=== PATIENT | female | born 1970 | race Caucasian/White ===

== ENCOUNTER → 2021-03-24 | Outpatient (CLI) | payer BC, OTHER ==
[~2021-03-24] VITALS: Ht 165.1 cm; Wt 113.4 kg
[~2021-03-24] MED LIST: ACETAMINOPHEN325 M1 PO; MELOXICAM7.5 MG PO; METHOCARBAMOL500 M2 PO; METHOTREXATE 22.5 M1 PO; NEURONTIN100 MG PO; PERCOCET 5-3251 EACH PO; PRILOSEC OTC20 MG PO; RAYOS5 MG PO; ZESTRIL40 MG PO
--- NOTE | ~2021-03-24 | HPC ---
[facility] [place] [address] PAIN MANAGEMENT CONSULTATION Name: LYNNE MORATAYA Room #: REG [facility]..#: [id number] Admission: 03/24/21 Attend Phys: Shai Cazares DO Discharge: Date of : 68 Report #: [id number] THIS REPORT FOR: cc: Frankie Castillo,Frankie Gibbons,Shai Sullivan DO ~ cc: Phani Blackburn MD DATE OF SERVICE: 03/24/2021 REFERRING PHYSICIAN: Phnai Blackburn MD CHIEF COMPLAINT: Low back pain, left lower extremity pain with paresthesias. HISTORY OF PRESENT ILLNESS: As you know, the patient is a 50-year-old female who reports acute onset of low back pain, left lower extremity pain that began 12/16/2019. She denies specific injury or trauma. She indicates that her pain progressively worsened. She trialled conservative treatment including [id number] medications, rest and relaxation without much in the way of improvement. She was recently seen by her shipyard painter helper, Dr. Phani Blackburn and nurse practitioner, Belen Granados, and evaluated for her underlying rheumatologic issues. She was complaining of back pain, left lower extremity pain. She was given a Medrol Dosepak, which provided minimal improvement in symptoms. They did obtain x-rays, which showed significant degenerative changes of the lumbar spine. She underwent MRI of the lumbar spine, which showed changes consistent with her distribution of symptoms at the L4-L5 level. She has trialled conservative treatment options including physical therapy. She did 4-5 weeks of physical therapy 2-3 times a week, but did not notice much in the way of improvement. She has been continuing to experience increasing pain for which she places pain up to a level of 10/10. She contacted her Rheumatology group who referred the patient on to our clinic. We also received a referral from the primary care team. The patient reports today is intermittent. She describes the pain as a shooting, aching, crushing throbbing, sharp, stabbing, pounding, numbness and tingling. Places current pain score at 4-5/10, daily average at 4-5/10, worst pain has been is 10+/10. The patient indicates her pain is exacerbated with rising from bed and standing as well as progresses throughout the day. Pain is improved with minimal movement. She has been referred to our service to discuss treatment options for suspected lumbar radiculopathy. PAST MEDICAL HISTORY: 1. Hypertension. 2. Degenerative joint disease. 3. Osteoarthritis. 4. Seropositive rheumatoid arthritis. 5. Class 3 [place] [address] PAIN MANAGEMENT CONSULTATION Name: LYNNE MORATAYA Room #: REG [facility] Campbell#: [id number] Admission: 03/24/21 Attend Phys: Shai Cazares DO Discharge: Date of : 68 Report #: [id number] PAST SURGICAL HISTORY: 1. Tonsillectomy. 2. D and C. SOCIAL HISTORY: The patient denies tobacco use. Denies IV or illicit drug use. Admits approximately 3 alcohol beverages per week. 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 She is not in litigation in regards to pain. She is unaccompanied at today's visit. REVIEW OF SYSTEMS: Positive for wearing corrective eyewear, nocturia, dysuria, change in force and streaming urination, incontinence and dribbling to urine, numbness and tingling sensations involving the left lower extremity, varicose veins, nervousness. All other review of systems negative per 12-point review of systems other than those listed in history of present illness. Pain impact score 48 of 70, moderate to severe interference of daily activities secondary to pain. ALLERGIES: SULFA. CURRENT MEDICATIONS: Tylenol regular strength 325 mg p.r.n., methocarbamol 500 mg 3 times a day, Zestril 40 mg once a day, omeprazole 40 mg once a day, omeprazole 20 mg once a day, meloxicam 7.5 mg once a day, methotrexate 2.5 mg 8 tablets per week, Percocet 5/325 one tab p.o. b.i.d., prednisone 5 mg once a day, gabapentin 100 mg 3 times a day. IMAGING: MRI lumbar spine obtained 03/17/2021 shows L1-L2 unremarkable. L2-L3 unremarkable. L3-L4 unremarkable. L4-L5 shows disk protrusion, moderate facet arthropathy, mild central canal narrowing. There is subarticular recess narrowing, left greater than right. There is abutment of the descending L5 nerve roots, left greater than right. No foraminal narrowing. L5-S1 shows posterior disk osteophyte complex. Moderate facet arthropathy. Prominent epidural fat within the thecal sac inferiorly. No neural foraminal stenosis. PHYSICAL EXAMINATION: VITAL SIGNS: Blood pressure 154/88, pulse 96, respiratory rate 18 and unlabored. The patient is 95% on room air. Height 5 feet 5 inches tall, weight 250 pounds, BMI calculated 41.6. GENERAL: Well-developed, well-nourished, well-hydrated class 3, severely morbidly obese 50-year-old female appearing stated age. Pain is rated today at 4-5/10. HEENT: Normocephalic, atraumatic. Pupils equal, round and responsive to light. She is wearing a mask in compliance with COVID-19 regulations. LUNGS: Appear clear. No wheezes, rhonchi or rales. [facility] [address] [place] [address] PAIN MANAGEMENT CONSULTATION Name: LYNNE MORATAYA Room #: REG [facility] KurtzBelén#: [id number] Admission: 03/24/21 Attend Phys: Shai Cazares DO Discharge: Date of : 68 Report #: [id number] CARDIOVASCULAR: Regular. ABDOMEN: Soft, obese. Bowel sounds are present. EXTREMITIES: Show no clubbing, no cyanosis, no edema. MUSCULOSKELETAL: Lower extremity strength is symmetrical, 5/5. Slight giveaway strength noted with hip flexion, knee extension on the left compared to right. Muscle bulk and tone is equal and symmetrical in lower extremities. Seated straight leg raising is mildly positive on the left. Supine straight leg raising positive on the left at approximately 60-degree angle though this is limited by body habitus. Gait is mildly antalgic, favoring left lower extremity over right. Deep tendon reflexes were symmetrical, but diminished bilaterally at patella and Achilles. Ankle clonus negative. Babinski is negative. Lumbar provocation testing is met with slight increase in axial back pain. ASSESSMENT: 1. Symptomatic lumbar radiculopathy. 2. Subarticular recess stenosis. 3. Displacement of L5 nerve root, left greater than right. 4. Moderate facet arthropathy. 5. Mild central canal narrowing. 6. Lumbar degeneration. 7. Morbid obesity. 8. Chronic intractable pain. PLAN: 1. Based on today's physical exam, the history the patient provides, the distribution of symptoms, the patient is experiencing pain upon and the descriptors she uses in regards to the symptoms, the likely source of the patient's pain is a lumbar radiculopathy. The patient and I spent time today reviewing her MRI obtained on 03/17/2021. The findings at the L4-L5 level are consistent with the patient's distribution. There is abutment of the descending L5 nerve roots bilaterally. She is only experiencing left L5 radiculopathy at this time, though there is a high possibility that the patient may be experiencing right L5 radiculopathy, given the equal abutment of the nerve roots at this level. We discussed with the patient the findings of the MRI and how they correlate to her current symptoms. After that discussion, we did agree chatted about the options for treatment. The following was discussed with the patient today. We discussed physical therapy, stretching exercises, core strengthening and I concerted effort at weight loss as a treatment goal. The patient has been in physical therapy for 4-5 weeks, but has had no changes in her overall weight. Without weight loss, physical therapy will be less than beneficial. The patient does indicate today that with the increasing weight, she had noted increasing pain. We discussed with the patient treatment options with adjustments in medication management. She is currently taking a very low-dose gabapentin. This could be rapidly escalated to reach a more efficacious level. She reports [address] [address] PAIN MANAGEMENT CONSULTATION Name: LYNNE MORATAYAN Room #: REG [facility] Adrian#: [id number] Admission: 03/24/21 Attend Phys: Shai E. Sage, DO Discharge: Date of : 68 Report #: [id number] that she is on 100 mg gabapentin, 2 tabs in the morning, 2 tabs at night. This is an extremely low dose. It could be escalated quite quickly to up to 1200 mg 3 times a day would we are having to watch for side effects with the therapy. We also discussed with the patient with epidural injections under fluoroscopic guidance for which the patient was referred to our clinic. We also discussed with the patient surgical options including spinal cord stimulator therapy and ultimately surgical decompression at the L4-L5 level. After reviewing the risks and benefits of all the proposed treatment options, the patient chose to begin with a lumbar epidural injection under fluoroscopic guidance. 2. The patient was advised due to third constitution party payer restrictions, authorization would have to be obtained before the patient could undergo the procedure. Authorization could take anywhere from 12-24 hours, will begin that process immediately. We will have the patient scheduled tentatively to undergo the first in a series of lumbar epidural injections tomorrow. I am hopeful it will have that authorization for the patient to be able to submit to that injection and begin to see analgesic benefit. 2. We have recommended the patient to increase her gabapentin starting this evening. We have also advised the patient to take the medication 1 hour before bedtime. This will allow the medication to reach efficacy before retiring for the night. The increase will be monitored for any potential side effects. 3. Plan to see the patient back tomorrow to undergo a lumbar epidural injection under fluoroscopic guidance in hopes of improving lumbar radicular symptoms secondary to the findings at the L4-L5 level. 4. We wish to thank Dr. Phani Blackburn, nurse practitioner Belen Granados and Dr. Frankie Castillo for the referral of this patient to our clinic. We will keep you apprised her response to treatment as we address lumbar radiculopathy secondary to the findings at the L4-L5 level. Again, we wish to thank you for the opportunity to see this patient in consultation. By: [id number] Shai Cazares DO /nt
[2021-03-24 13:31] VITALS: BP 154/88
--- NOTE | 2021-03-24 13:50 | NUR ---
Pain Clinic Assessment: 1. History of Osteoarthritis: History of Rheumatoid Arthritis: 2. Height: 5 ft. 5 in. 165.1 cm. Weight: 250.0 lb. oz. 113.400 kg. Patient's BMI: 41.6 3. Vital Signs: BP: 154/88 Pulse: 96 Resp: 18 Temp: 02 Sat: 95 ECG Mon: 4. Pain Intensity: 4-5 5. Fall Risk: Dizziness: Y Needs help standing or walking: N Fallen in the last 3 months: N Fall risk comments: 6. Patient on Blood Thinner: 7. History of Hypertension: 8. Opioid Therapy greater than 6 weeks: Opiate Contract Signed: 9. Risk Assessment Tool Provided: 10. Functional Assessment Tool: 11. Recreational Drug Use: Drug Type: Tobacco Use: Tobacco Type: Amount or Packs/day: How Many Years: Alcohol Use: Frequency: Quant:
== END ==
LOC: PAIN 07:03
PROVIDERS: ATTEND Anesthesiology Pain Medicine
DX: M51.16 Intervertebral disc disorders with radiculopathy, lumbar region (principal); M47.26 Other spondylosis with radiculopathy, lumbar region; M48.061 Spinal stenosis, lumbar region without neurogenic claudication; E66.9 Obesity, unspecified; G89.29 Other chronic pain; M79.662 Pain in left lower leg; Z88.8 Allergy status to other drugs, medicaments and biological substances; Z79.899 Other long term (current) drug therapy

== ENCOUNTER → 2021-03-25 | Outpatient (CLI) | payer BC, OTHER ==
[~2021-03-25] VITALS: Ht 165.1 cm; Wt 113.4 kg
--- NOTE | ~2021-03-25 | HPC ---
[facility] [place] [address] PAIN MANAGEMENT CONSULTATION Name: LYNNE MORATAYA [id number] Admission: 03/25/21 Attend Phys: Shai Cazares DO Discharge: Date of : 68 Report #: [id number] THIS REPORT FOR: cc: Frankie Castillo,Frankie Gibbons,Shai Sullivan DO ~ cc: Frankie Rangel DATE OF SERVICE: 03/25/2021 CHIEF COMPLAINT: Low back pain, left lower extremity pain with paresthesias. HISTORY OF PRESENT ILLNESS: As you know, the patient is a morbidly obese 50-year-old female reporting acute onset of low back pain, left lower extremity pain, and paresthesias began 12/15/2020. She denies any specific injury or trauma. She indicates pain progressively worsened. She trialled conservative treatment without benefit. She has been to the emergency department multiple times due to this ongoing issue. She has been advised to trial conservative options initially. She has not been seen by Neurosurgery. She was referred to our clinic after undergoing MRI of the lumbar spine, which showed changes at the L4-L5 level consistent with her symptoms. She has trialled medication management, but again failed this due to progressively worsening symptoms. We saw the patient on 03/24/2021, diagnosed with lumbar radiculopathy secondary to the displacement of lumbar intervertebral disk and made today's appointment to undergo lumbar epidural injection after we discussed treatment options. ALLERGIES: SULFA. CURRENT MEDICATIONS: See chart. SOCIAL HISTORY: Unchanged. She denies tobacco use. Denies IV or illicit drug use. Admits to 3 alcohol beverages per week. 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 IMAGING: No new imaging is available. PHYSICAL EXAMINATION: VITAL SIGNS: Blood pressure 117/68, pulse is 91, respiratory rate 16 and unlabored. The patient 98% on room air. Height is 5 feet 5 inches tall, weight 250 pounds, BMI calculated 41.6. GENERAL: Well-developed, well-nourished, well-hydrated class III, severely morbidly obese 50-year-old female appearing her stated age, pain is rated anywhere from 6-7/10 today. HEENT: Normocephalic, atraumatic. Pupils equal, round and responsive. She is wearing a mask in compliance with COVID-19 regulations in hospital policies. EXTREMITIES: Show no clubbing, no cyanosis. No appreciable edema. MUSCULOSKELETAL: Lower extremity strength is symmetrical, 5/[address] [address] PAIN MANAGEMENT CONSULTATION Name: LYNNE MORATAYA Room #: REG [facility] Campbell#: [id number] Admission: 03/25/21 Attend Phys: Shai Cazares DO Discharge: Date of : 68 Report #: [id number] strength noted on the left due to pain generation with hip flexion and knee extension. Seated straight leg raising positive on the left. Supine straight leg raising positive on the left, but is once again limited by body habitus. ASSESSMENT: 1. Symptomatic lumbar radiculopathy. 2. Subarticular recess stenosis of lumbar spine. 3. Displacement of the L5 nerve root secondary to a displaced lumbar intervertebral disk, left greater than right. 4. Moderate facet arthropathy. 5. Mild central canal narrowing. 6. Lumbar degeneration. 7. Morbid obesity. 8. Chronic intractable pain. PLAN: 1. The patient returns today in followup visit having prepared to undergo a lumbar epidural injection under fluoroscopic guidance. The patient is placing pain anywhere from 6-10/04. The patient has been advised of the risks and benefits of a lumbar epidural injection. These risks include but are not necessarily limited to bleeding, bruising, infection, worsening pain, no relief of pain, also risk of temporary or permanent muscle weakness, temporary or permanent nerve damage, possible paralysis, post-dural puncture headache and . The patient states understood and wished to proceed. 2. No medication changes made at today's visit. The patient will continue current medical therapy as prior prescribed. 3. Plan to see the patient back in followup visit in 31 days. At that time, review the efficacy of today's lumbar epidural injections. Determine if next in the series of epidural injections would be recommended. PROCEDURE NOTE DESCRIPTION OF PROCEDURE: L5-S1 left paramedian epidural steroid injection under fluoroscopic guidance. This is the first procedure of the first series that the patient is undergoing. After obtaining written consent, the patient was taken back to the fluoroscopy suite, placed in a prone position with pillow under the abdomen to decrease lumbar lordosis. The skin overlying the lumbosacral area was then prepped and draped in aseptic fashion. The L5-S1 vertebral interspace was then identified by AP fluoroscopy. The skin and subcutaneous tissue overlying the target site of injection was anesthetized with 3 mL 1% lidocaine. A 20-gauge 4-1/2 inch Tuohy needle was then advanced under fluoroscopic guidance towards the epidural space using a left paramedian approach. The epidural space [address] [address] PAIN MANAGEMENT CONSULTATION Name: LYNNE MORATAYA Room #: REG [facility]#: [id number] Admission: 03/25/21 Attend Phys: Shai Cazares DO Discharge: Date of : 68 Report #: [id number] was identified using loss of resistance to air technique. After negative aspiration for heme or cerebrospinal fluid, a total of 1 mL of Omnipaque was injected. A lumbar epidurogram was confirmed using both AP and lateral fluoroscopy. After negative aspiration for heme or cerebrospinal fluid, 5 mL of a solution containing 2 mL 40 mg per mL 80 mg total triamcinolone along with 3 mL of lidocaine 1% was injected in increments. Contrast spread was noted in postepidural space. The needle was then retracted approximately half way and needle tract flushed with 1 mL of 1% lidocaine. Needle was then removed. There were no apparent sensory or motor deficits in the lower extremity following the procedure. A sterile bandage was placed over the injection site. The heart rate, pulse, oximetry and blood pressure were continuously monitored after the procedure. There were no apparent complications. The patient tolerated the procedure well and was carefully escorted to the recovery room in stable condition. There were no apparent complications. After meeting discharge criteria, the patient was then discharged home. By: [id number] Shai Cazares DO /nt
[2021-03-25 07:50] VITALS: BP 117/68
--- NOTE | 2021-03-25 07:52 | NUR ---
Pain Clinic Assessment: 1. History of Osteoarthritis: History of Rheumatoid Arthritis: HIGH RA SCORE 52 2. Height: 5 ft. 5 in. 165.1 cm. Weight: 250.0 lb. oz. 113.400 kg. Patient's BMI: 41.6 3. Vital Signs: BP: 117/68 Pulse: 68 Resp: 16 Temp: 02 Sat: 98 ECG Mon: 4. Pain Intensity: 7 5. Fall Risk: Dizziness: N Needs help standing or walking: N Fallen in the last 3 months: N Fall risk comments: 6. Patient on Blood Thinner: None 7. History of Hypertension: Y 8. Opioid Therapy greater than 6 weeks: Opiate Contract Signed: 9. Risk Assessment Tool Provided: low-0 10. Functional Assessment Tool: 48/ 11. Recreational Drug Use: Never Drug Type: Tobacco Use: Never Smoker Tobacco Type: Amount or Packs/day: How Many Years: Alcohol Use: Yes Frequency: Quant:
== END | disposition home or self-care (01) ==
LOC: PAIN 06:50
PROVIDERS: ATTEND Anesthesiology Pain Medicine
DX: M51.16 Intervertebral disc disorders with radiculopathy, lumbar region (principal); M47.26 Other spondylosis with radiculopathy, lumbar region; M48.061 Spinal stenosis, lumbar region without neurogenic claudication; E66.01 Morbid (severe) obesity due to excess calories; G89.29 Other chronic pain; Z98.890 Other specified postprocedural states; Z79.899 Other long term (current) drug therapy; Z68.41 Body mass index [BMI] 40.0-44.9, adult; Z88.2 Allergy status to sulfonamides